=== PATIENT | male | born 1950 | race American Indian/Alaskan Native ===

== ENCOUNTER 2021-11-19 05:44 | Observation (INO) | payer MEDICARE, OTHER ==
[2021-11-14 10:56] LABS: Hematocrit 39.9 % (35.5-45.6); Hemoglobin 13.5 gm/dl (11.8-15.2); Mean Corpuscular HGB Conc 34 % (32-34); Mean Corpuscular Volume 87 fl (84-94); Platelet Count 126 K/mm3 (140-440); Red Blood Count 4.61 M/mm3 (3.65-5.03); Red Cell Distribution Width 15.5 % (13.2-15.2)
[2021-11-14 11:23] LABS: Calcium 9.6 mg/dL (8.4-10.2)
--- NOTE | 2021-11-14 11:40 | Anesthesia Consultation ---
Anesthesia Consult and Med Hx Date of service: 11/19/21 - Airway Anesthetic Teeth Evaluation: Crowns, Partials ROM Head & Neck: Adequate Mental/Hyoid Distance: Adequate Mallampati Class: Class II Intubation Access Assessment: Probably Good - Pre-Operative Health Status ASA Pre-Surgery Classification: ASA4 Proposed Anesthetic Plan: General - Pulmonary Hx Smoking: Yes (Quit 1994) SOB: No (SALAZAR 50 feet) Hx Pneumonia: Yes (2000, 2002 s/p CABG) Hx Sleep Apnea: Yes (+ CPAP) - Cardiovascular System Hx Hypertension: Yes (Diastolic CHF) Hx Coronary Artery Disease: Yes (CABG x 3) Hx Heart Attack/AMI: Yes - Central Nervous System Hx Neuromuscular Disorder: Yes (peripheral neuropathy, GOUT) CVA: No Hx Psychiatric Problems: No - Gastrointestinal Hx Gastroesophageal Reflux Disease: Yes (S/P gastric bypass 2013) - Endocrine Hx Renal Disease: Yes (S/P kidney transplant) Hx Insulin Dependent Diabetes: Yes - Hematic Hx Anemia: Yes Hx Sickle Cell Disease: No - Other Systems Hx Alcohol Use: No Hx Substance Use: No Hx Cancer: No Hx Obesity: Yes (s/p gastric bypass) - Additional Comments Anesthesia Medical History Comments: Pt is difficult IV access. Last time the IV infiltrated and patient is concerned about it. Significant cardiac history- records reviewed and +cardiac clearance. Was here twice in 2016. Consider restricting IVF perioperatively
[2021-11-19] MEDS ORDERED: SODIUM CHLORIDE 0.9% 1000 ML 1,000 ML IV SCH (06:00)
[2021-11-19] MEDS ORDERED: ceFAZolin/Water 2 GM/20 ML 2 GM/20 ML SYRINGE IV ONE (07:37)
[2021-11-19] MEDS ORDERED: LIDOCAINE MPF (2%) 20 MG/1 ML VIAL 5 ML ONE (07:42)
[2021-11-19] MEDS ORDERED: ONDANSETRON 4 MG/2 ML INJ ONE (07:42)
[2021-11-19] MEDS ORDERED: fentaNYL 100 MCG/2 ML INJ ONE (07:42)
[2021-11-19] MEDS ORDERED: propofoL 200 MG/20 ML VIAL IV ONE (07:43)
[2021-11-19] MEDS ORDERED: SODIUM CHLORIDE 0.9% 1000 ML 1,000 ML ONE (07:43)
[2021-11-19] MEDS ORDERED: DEXTROSE 50% IN WATER (25GM) 50 ML SYRINGE IV PRN (09:22)
[2021-11-19] MEDS ORDERED: MORPHINE 4 MG/1 ML INJ IV PRN (09:22)
[2021-11-19] MEDS ORDERED: HYDROcodone/ACETAMINOPHEN 5-325 MG TAB PO PRN (09:22)
[2021-11-19] MEDS ORDERED: NALOXONE 0.4 MG/1 ML INJ IV PRN (09:22)
[2021-11-19] MEDS ORDERED: ONDANSETRON 4 MG/2 ML INJ IV PRN (09:22)
[2021-11-19] MEDS ORDERED: ACETAMINOPHEN 325 MG TAB PO PRN (09:22)
--- NOTE | 2021-11-19 09:22 | Short Stay Summary ---
Short Stay Documentation Date of service: 11/19/21 - History H&P: obtained from office - Allergies and Medications Current Medications: Allergies No Known Allergies Allergy (Verified 11/06/21 16:28) Home Medications Medication Instructions Recorded Confirmed Last Taken Type Aspirin [Aspirin TAB] 81 mg PO DAILY 04/26/15 11/06/21 07/11/15 History Cholecalciferol (Vitamin D3) 2,000 unit PO QDAY 04/26/15 11/06/21 07/21/15 10:00 History [Vitamin D3] carvediloL [Coreg] 25 mg PO BID 04/30/15 11/12/21 07/11/15 History Albuterol Sulfate [Proair 90 mcg IH PRN PRN 11/06/21 11/06/21 Unknown History Respiclick] Atorvastatin [Lipitor Tab] 80 mg PO QHS 11/06/21 11/06/21 Unknown History Esomeprazole Magnesium [NexIUM] 40 mg PO QDAY 11/06/21 11/06/21 Unknown History Ezetimibe [Zetia] 10 mg PO QDAY 11/06/21 11/06/21 Unknown History Furosemide [Lasix TAB] 80 mg PO QDAY 11/06/21 11/06/21 Unknown History Gabapentin [Neurontin] 100 mg PO BID 11/06/21 11/06/21 Unknown History Insulin Glargine [Lantus VIAL] 10 units SUB-Q BID 11/06/21 11/06/21 Unknown History Insulin Lispro [Humalog 100 14 units SQ QDAY 11/06/21 11/06/21 Unknown History UNITS/ML Kwikpen] Multivitamin Tab [Multiple Vitamin 1 each PO QDAY 11/06/21 11/06/21 Unknown History TAB (Theragran)] hydrALAZINE [Apresoline TAB] 100 mg PO BID 11/06/21 11/06/21 Unknown History Mycophenolate Mofetil [Cellcept] 250 mg PO BID 11/12/21 11/12/21 Unknown History Tacrolimus [Prograf] 2 mg PO QAM 11/12/21 11/12/21 Unknown History Tacrolimus [Prograf] 3 mg PO QHS 11/12/21 11/12/21 Unknown History predniSONE [Deltasone] 5 mg PO QDAY 11/12/21 11/12/21 Unknown History Active Medications Sodium Chloride (Nacl 0.9% 1000 Ml) 1,000 mls @ 42 mls/hr IV DIRECT ELIECER - Brief post op/procedure progress note Date of procedure: 11/19/21 Pre-op diagnosis: BPH Post-op diagnosis: same Procedure: cysto, TURP---GREENLIGHT LASER OF PROSTATE Anesthesia: JEFFREY Surgeon: JHONATAN TAYLOR Estimated blood loss: minimal Pathology: list (PROSTATE CHIPS) Specimen disposition: to lab Condition: stable - Hospital course Hospital course: BACTRIM & SOLANGE ON CHART - Disposition Condition at discharge: Stable Disposition: 01 HOME / SELF CARE / HOMELESS Short Stay Discharge Plan Follow up with: IVETT PIERCE MD [Primary Care Provider] - 7 Days
[2021-11-19] MEDS ORDERED: NON-FORMULARY EACH (Albuterol Sulfate [Proair Respiclick] 90 MCG Aer.Pow.Ba) IH PRN (09:30)
[2021-11-19] MEDS ORDERED: SODIUM CHLORIDE IRRI 1000 ML 1,000 ML IR ONE (09:31)
[2021-11-19] MEDS ORDERED: carvediloL 3.125 MG TAB PO SCH (10:00)
[2021-11-19] MEDS ORDERED: NON-FORMULARY EACH (Esomeprazole Magnesium [Nexium] 40 MG Capsule.Dr) PO SCH (10:00)
[2021-11-19] MEDS ORDERED: NON-FORMULARY EACH (Furosemide [Lasix Tab] 80 MG Tablet) PO SCH (10:00)
[2021-11-19] MEDS ORDERED: MYCOPHENOLATE 250 MG CAP PO SCH (10:00)
[2021-11-19] MEDS ORDERED: NON-FORMULARY EACH (Insulin Lispro [Humalog 100 Units/Ml Kwikpen] 100 UNIT/ML Insuln.Pen) SQ SCH (10:00)
[2021-11-19] MEDS ORDERED: ALBUTEROL 2.5 MG/3 ML NEBU IH PRN (11:13)
[2021-11-19] MEDS ORDERED: SODIUM CHLORIDE 0.9% IRR 500 ML BOTTLE IR PRN (11:28)
--- NOTE | 2021-11-19 11:33 | Operative Report ---
DATE OF SURGERY: 11/19/2021 PREOPERATIVE DIAGNOSIS: Benign prostatic hyperplasia. POSTOPERATIVE DIAGNOSIS Benign prostatic hyperplasia. PROCEDURES: Cystoscopy, transurethral resection of prostate, GreenLight laser of the prostate. SURGEON: Edy Lovett MD ANESTHESIA: General. ESTIMATED BLOOD LOSS: Minimal. FLUIDS: Crystalloid. COMPLICATIONS: No complications. INDICATIONS: This patient is a 71-year-old gentleman, history of diabetes, renal insufficiency, status post kidney transplant with persistent BPH symptoms despite medication. Also, of note, he is on Lasix. Discussed options. The patient agreed to proceed with surgical intervention. Risks, benefits, complications were explained. The patient was also cleared by his transplant team as well as his decorating instructor, Dr. Boyce. DESCRIPTION OF PROCEDURE: The patient was taken to the operative suite, placed in a supine position. After adequate general anesthesia, placed in the dorsal lithotomy position, prepped and draped in a sterile fashion. Pancystourethroscopy was performed with a 22-Bruneian Storz cystoscope, no urethral abnormalities. Also, of note, the patient has an inflatable penile prosthesis. His prostate displays moderate trilobar obstruction. Bladder, no tumors or stones were noted. Next, using a 24-Bruneian resectoscope and loop with cutting and coag on 160 and 60, transurethral resection of the prostate was performed, taken down the median lobes. Also, with the aid of a GreenLight laser at 80 colbert, laser ablation of the lateral lobes and median lobe was performed. The patient tolerated the procedure well. A 22-Bruneian 3-way catheter was placed. Rectal exam was benign. He was extubated and taken to Recovery Room with a Anglin's drip. He will be observed overnight. He will go home on Bactrim and [place]. TID: [id number] RECEIPT: [id number] LEE/KIKI/DEMETRICE
[2021-11-19] MEDS: MULTIVITAMINS ,THERAPEUTIC TAB PO SCH (11:46)
[2021-11-19] MEDS: EZETIMIBE 10 MG TAB PO SCH (11:46)
[2021-11-19] MEDS: predniSONE 5 MG TAB PO SCH (11:47)
[2021-11-19] MEDS: hydrALAZINE 100 MG TAB PO SCH ×2 (11:47→21:16)
[2021-11-19] MEDS: GABAPENTIN 100 MG CAP PO SCH ×2 (11:47→21:16)
[2021-11-19] MEDS: PANTOPRAZOLE 40 MG TAB PO SCH (11:47)
[2021-11-19] MEDS: INSULIN LISPRO 100 UNIT/ML SUB-Q SCH (12:30)
[2021-11-19] MEDS: MYCOPHENOLATE 500 MG TAB PO SCH ×2 (12:30→21:16)
[2021-11-19] MEDS: TACROLIMUS 1 MG CAP PO SCH (12:30)
--- NOTE | 2021-11-19 12:54 | Consultation ---
History of Present Illness - Reason for Consult Consult date: 11/19/21 med management Requesting physician: JHONATAN TAYLOR - History of Present Illness 71-year-old male with past medical history of BPH who presented for a procedure to [facility] for cystoscopy and TURP. Patient underwent procedure this morning by urology. Urology has placed a consult for general medical management. Patient denies any chest pain or shortness of breath. No headache or visual disturba nces Past History Past Medical History: CAD, hyperlipidemia, other (BPH) Past Surgical History: Other (Recent TURP and cystoscopy, kidney transplant, CABG) Social history: no significant social history Family history: no significant family history Medications and Allergies Allergies Allergy/AdvReac Type Severity Reaction Status Date / Time No Known Allergies Allergy Verified 11/06/21 16:28 Home Medications Medication Instructions Recorded Confirmed Last Taken Type Aspirin [Aspirin TAB] 81 mg PO DAILY 04/26/15 11/06/21 07/11/15 History Cholecalciferol (Vitamin D3) 2,000 unit PO QDAY 04/26/15 11/06/21 07/21/15 10:00 History [Vitamin D3] carvediloL [Coreg] 25 mg PO BID 04/30/15 11/12/21 07/11/15 History Albuterol Sulfate [Proair 90 mcg IH PRN PRN 11/06/21 11/06/21 Unknown History Respiclick] Atorvastatin [Lipitor Tab] 80 mg PO QHS 11/06/21 11/06/21 Unknown History Esomeprazole Magnesium [NexIUM] 40 mg PO QDAY 11/06/21 11/06/21 Unknown History Ezetimibe [Zetia] 10 mg PO QDAY 11/06/21 11/06/21 Unknown History Furosemide [Lasix TAB] 80 mg PO QDAY 11/06/21 11/06/21 Unknown History Gabapentin [Neurontin] 100 mg PO BID 11/06/21 11/06/21 Unknown History Insulin Glargine [Lantus VIAL] 10 units SUB-Q BID 11/06/21 11/06/21 Unknown History Insulin Lispro [Humalog 100 14 units SQ QDAY 11/06/21 11/06/21 Unknown History UNITS/ML Kwikpen] Multivitamin Tab [Multiple Vitamin 1 each PO QDAY 11/06/21 11/06/21 Unknown History TAB (Theragran)] hydrALAZINE [Apresoline TAB] 100 mg PO BID 11/06/21 11/06/21 Unknown History Mycophenolate Mofetil [Cellcept] 500 mg PO BID 11/12/21 11/19/21 Unknown History Tacrolimus [Prograf] 2 mg PO QAM 11/12/21 11/12/21 Unknown History Tacrolimus [Prograf] 3 mg PO QHS 11/12/21 11/12/21 Unknown History predniSONE [Deltasone] 5 mg PO QDAY 11/12/21 11/12/21 Unknown History Active Meds: Active Medications Acetaminophen (Acetaminophen 325 Mg Tab) 650 mg PO Q4H PRN PRN Reason: Pain, Mild (1-3)/Fever > 100.5 Hydrocodone Bitart/Acetaminophen (Hydrocodone/Acetaminophen 5-325 Mg Tab) 2 each PO Q4H PRN PRN Reason: Pain, Moderate (4-6) Albuterol (Albuterol 2.5 Mg/3 Ml Nebu) 2.5 mg IH Q4HRT PRN PRN Reason: Shortness Of Breath Atorvastatin Calcium (Atorvastatin 40 Mg Tab) 80 mg PO QHS [facility] Carvedilol (Carvedilol 25 Mg Tab) 25 mg PO Q12HR [facility] Dextrose (Dextrose 50% In Water (25gm) 50 Ml Syringe) 50 ml IV Q30MIN PRN; Protocol PRN Reason: Hypoglycemia Ezetimibe (Ezetimibe 10 Mg Tab) 10 mg PO QDAY [facility] Last Admin: 11/19/21 11:46 Dose: 10 mg Furosemide (Furosemide 40 Mg Tab) 80 mg PO DAILY [facility] Gabapentin (Gabapentin 100 Mg Cap) 100 mg PO BID ELIECER Last Admin: 11/19/21 11:47 Dose: 100 mg Hydralazine HCl (Hydralazine 100 Mg Tab) 100 mg PO BID [facility] Last Admin: 11/19/21 11:47 Dose: 100 mg Sodium Chloride (Nacl 0.9% 1000 Ml) 1,000 mls @ 42 mls/hr IV DIRECT ELIECER Cefazolin Sodium (Ancef/Ns 1 Gm/50 Ml) 1 gm in 50 mls @ 100 mls/hr IV Q8H [facility]; Protocol Stop: 11/20/21 00:29 Insulin Glargine (Insulin Glargine 100 Units/Ml) 10 units SUB-Q BID [facility] Insulin Human Lispro (Insulin Lispro 100 Unit/Ml) 14 unit SUB-Q DAILY@1200 [facility] Last Admin: 11/19/21 12:30 Dose: 14 unit Insulin Human Lispro (Insulin Lispro 100 Unit/Ml) 12 unit SUB-Q DAILY@1730 [facility] Morphine Sulfate (Morphine 4 Mg/1 Ml Inj) 4 mg IV Q4H PRN PRN Reason: Pain , Severe (7-10) Multivitamins (Multivitamins ,Therapeutic Tab) 1 each PO QDAY [facility] Last Admin: 11/19/21 11:46 Dose: 1 each Mycophenolate Mofetil (Mycophenolate 500 Mg Tab) 500 mg PO BID [facility] Last Admin: 11/19/21 12:30 Dose: 500 mg Naloxone HCl (Naloxone 0.4 Mg/1 Ml Inj) 0.1 mg IV Q2MIN PRN PRN Reason: Res Rate </= 8 or 02 SAT < 92% Ondansetron HCl (Ondansetron 4 Mg/2 Ml Inj) 4 mg IV Q8H PRN PRN Reason: Nausea And Vomiting Pantoprazole Sodium (Pantoprazole 40 Mg Tab) 40 mg PO DAILY [facility] Last Admin: 11/19/21 11:47 Dose: 40 mg Prednisone (Prednisone 5 Mg Tab) 5 mg PO QDAY [facility] Last Admin: 11/19/21 11:47 Dose: 5 mg Sodium Chloride (Sodium Chloride 0.9% Irr 500 Ml Bottle) 500 ml IR DIRECT PRN PRN Reason: Wound Care Tacrolimus (Tacrolimus 1 Mg Cap) 2 mg PO QAM [facility] Last Admin: 11/19/21 12:30 Dose: 2 mg Tacrolimus (Tacrolimus 1 Mg Cap) 3 mg PO QHS [facility] Zolpidem Tartrate (Zolpidem 5 Mg Tab) 5 mg PO QHS PRN PRN Reason: Sleep Review of Systems All systems: negative Exam - Constitutional Vitals: Temp Pulse Resp BP Pulse Ox 97.2 F L 66 19 168/78 98 11/19/21 09:24 11/19/21 11:15 11/19/21 11:15 11/19/21 11:15 11/19/21 11:15 General appearance: Present: no acute distress, well-nourished - EENT Eyes: Present: PERRL ENT: hearing intact, clear oral mucosa - Neck Neck: Present: supple, normal ROM - Respiratory Respiratory effort: normal Respiratory: bilateral: CTA - Cardiovascular Heart Sounds: Present: S1 & S2. Absent: rub, click - Extremities Extremities: pulses symmetrical, No edema Peripheral Pulses: within normal limits - Abdominal General gastrointestinal: Present: soft, non-tender, non-distended, normal bowel sounds Male genitourinary: Present: normal - Integumentary Integumentary: Present: clear, warm, dry - Musculoskeletal Musculoskeletal: gait normal, strength equal bilaterally - Psychiatric Psychiatric: appropriate mood/affect, intact judgment & insight - Neurologic Neurologic: CNII-XII intact, moves all extremities Results - Labs CBC & Chem 7: 11/14/21 10:35 11/14/21 10:35 Labs: Abnormal lab results 11/19/21 11/19/21 Range/Units 06:37 09:28 POC Glucose 157 H 160 H (70-105) mg/dL Assessment and Plan BPH. Patient status post cystoscopy and TURP. Hyperlipidemia. Resume antilipid CAD. History of CABG. Continue Coreg History of renal transplant. Continue medications/immunosuppressants
--- NOTE | 2021-11-19 13:12 | Post Anesthesia Evaluation ---
- Post Anesthesia Evaluation Patient Participated: Yes Airway Patent: Yes Stable Respiratory Function: Yes Nausea/Vomiting: No Temp > 96.8F: Yes Pain Manageable: Yes Adequeate Hydration: Yes Anesthesia Complications: No
[2021-11-19] MEDS: ceFAZolin/NS 1 GM/50 ML 1 GM/50 ML BAG IV SCH (17:18)
[2021-11-19] MEDS ORDERED: INSULIN LISPRO 100 UNIT/ML SUB-Q SCH (17:30)
[2021-11-19] MEDS ORDERED: ZOLPIDEM 5 MG TAB PO PRN (21:00)
[2021-11-19] MEDS: carvediloL 25 MG TAB PO SCH (21:16)
[2021-11-19] MEDS: INSULIN GLARGINE 100 UNITS/ML SUB-Q SCH (21:16)
[2021-11-19] MEDS ORDERED: NON-FORMULARY EACH (Atorvastatin [Lipitor] 80 MG Tablet) PO SCH (22:00)
[2021-11-19] MEDS ORDERED: TACROLIMUS 1 MG CAP PO SCH (22:00)
[2021-11-20] MEDS: ceFAZolin/NS 1 GM/50 ML 1 GM/50 ML BAG IV SCH (01:06)
[2021-11-20 05:51] LABS: Basophils % (Auto) 0.5 % (0.0-1.8); Eosinophils % (Auto) 0.7 % (0.0-4.3); Hematocrit 37.6 % (35.5-45.6); Hemoglobin 12.4 gm/dl (11.8-15.2); Lymphocytes # (Auto) 1.1 K/mm3 (1.2-5.4); Lymphocytes % (Auto) 17.9 % (13.4-35.0); Mean Corpuscular HGB Conc 33 % (32-34); Mean Corpuscular Volume 88 fl (84-94); Monocytes # (Auto) 0.6 K/mm3 (0.0-0.8); Monocytes % (Auto) 10.2 % (0.0-7.3); Platelet Count 116 K/mm3 (140-440); Red Blood Count 4.29 M/mm3 (3.65-5.03); Red Cell Distribution Width 15.3 % (13.2-15.2)
[2021-11-20 06:10] LABS: Calcium 8.6 mg/dL (8.4-10.2)
[2021-11-20] MEDS: carvediloL 25 MG TAB PO SCH (09:08)
[2021-11-20] MEDS: EZETIMIBE 10 MG TAB PO SCH (09:08)
[2021-11-20] MEDS: predniSONE 5 MG TAB PO SCH (09:08)
[2021-11-20] MEDS: PANTOPRAZOLE 40 MG TAB PO SCH (09:08)
[2021-11-20] MEDS: MYCOPHENOLATE 500 MG TAB PO SCH (09:08)
[2021-11-20] MEDS: MULTIVITAMINS ,THERAPEUTIC TAB PO SCH (09:08)
[2021-11-20] MEDS: GABAPENTIN 100 MG CAP PO SCH (09:08)
[2021-11-20] MEDS: TACROLIMUS 1 MG CAP PO SCH (09:08)
[2021-11-20] MEDS: INSULIN GLARGINE 100 UNITS/ML SUB-Q SCH (09:09)
[2021-11-20] MEDS: hydrALAZINE 100 MG TAB PO SCH (09:09)
[2021-11-20] MEDS ORDERED: FUROSEMIDE 40 MG TAB PO SCH (10:00)
--- NOTE | 2021-11-20 10:18 | Progress Note ---
Assessment and Plan Assessment and plan: BPH. Patient status post cystoscopy and TURP. Hyperlipidemia. Resume antilipid CAD. History of CABG. Continue Coreg History of renal transplant. Continue medications/immunosuppressants History Interval history: No new issues overnight Hospitalist Physical - Constitutional Vitals: Temp Pulse Resp BP Pulse Ox 98.2 F 84 18 138/51 97 11/19/21 21:03 11/20/21 00:17 11/20/21 00:17 11/19/21 21:03 11/20/21 00:17 General appearance: Present: no acute distress, well-nourished - EENT Eyes: Present: PERRL, EOM intact ENT: hearing intact, clear oral mucosa, dentition normal - Neck Neck: Present: supple, normal ROM - Respiratory Respiratory effort: normal Respiratory: bilateral: CTA - Cardiovascular Rhythm: regular Heart Sounds: Present: S1 & S2. Absent: gallop, rub - Extremities Extremities: no ischemia, No edema, Full ROM - Abdominal General gastrointestinal: soft, non-tender, non-distended, normal bowel sounds - Integumentary Integumentary: Present: clear, warm, dry - Neurologic Neurologic: CNII-XII intact, moves all extremities Results - Labs CBC & Chem 7: 11/20/21 04:00 11/20/21 04:00 Labs: Laboratory Last Values WBC 6.1 K/mm3 (4.5-11.0) 11/20/21 04:00 RBC 4.29 M/mm3 (3.65-5.03) 11/20/21 04:00 Hgb 12.4 gm/dl (11.8-15.2) 11/20/21 04:00 Hct 37.6 % (35.5-45.6) 11/20/21 04:00 MCV 88 fl (84-94) 11/20/21 04:00 MCH 29 pg (28-32) 11/20/21 04:00 MCHC 33 % (32-34) 11/20/21 04:00 RDW 15.3 % (13.2-15.2) H 11/20/21 04:00 Plt Count 116 K/mm3 (140-440) L 11/20/21 04:00 Lymph % (Auto) 17.9 % (13.4-35.0) 11/20/21 04:00 [place] % (Auto) 10.2 % (0.0-7.3) H 11/20/21 04:00 Eos % (Auto) 0.7 % (0.0-4.3) 11/20/21 04:00 Baso % (Auto) 0.5 % (0.0-1.8) 11/20/21 04:00 Lymph # (Auto) 1.1 K/mm3 (1.2-5.4) L 11/20/21 04:00 [place] # (Auto) 0.6 K/mm3 (0.0-0.8) 11/20/21 04:00 Eos # (Auto) 0.0 K/mm3 (0.0-0.4) 11/20/21 04:00 Baso # (Auto) 0.0 K/mm3 (0.0-0.1) 11/20/21 04:00 Seg Neutrophils % 70.7 % (40.0-70.0) H 11/20/21 04:00 Seg Neutrophils # 4.3 K/mm3 (1.8-7.7) 11/20/21 04:00 Sodium 138 mmol/L (137-145) 11/20/21 04:00 Potassium 5.5 mmol/L (3.6-5.0) H 11/20/21 04:00 Chloride 105.7 mmol/L (98-107) 11/20/21 04:00 Carbon Dioxide 23 mmol/L (22-30) 11/20/21 04:00 Anion Gap 15 mmol/L 11/20/21 04:00 BUN 41 mg/dL (9-20) H 11/20/21 04:00 Creatinine 1.8 mg/dL (0.8-1.3) H 11/20/21 04:00 Estimated GFR 45 ml/min 11/20/21 04:00 BUN/Creatinine Ratio 23 % 11/20/21 04:00 Glucose 196 mg/dL (75-100) H 11/20/21 04:00 POC Glucose 160 mg/dL (70-105) H 11/19/21 09:28 Calcium 8.6 mg/dL (8.4-10.2) 11/20/21 04:00 Total Bilirubin 0.90 mg/dL (0.1-1.2) 11/14/21 10:35 AST 41 units/L (5-40) H 11/14/21 10:35 ALT 72 units/L (7-56) H 11/14/21 10:35 Alkaline Phosphatase 81 units/L (35-129) 11/14/21 10:35 Total Protein 6.7 g/dL (6.3-8.2) 11/14/21 10:35 Albumin 4.0 g/dL (3.9-5) 11/14/21 10:35 Albumin/Globulin Ratio 1.5 % 11/14/21 10:35 SARS-CoV-2 (PCR) Negative (Negative) 11/14/21 10:30 Blood Type A POSITIVE 11/19/21 06:35 Antibody Screen Negative 11/19/21 06:35 [place]/IV: Voiding Method Indwelling Catheter Active Medications - Current Medications Current Medications: Generic Name Dose Route Start Last Admin Trade Name Freq PRN Reason Stop Dose Admin Acetaminophen 650 mg 11/19/21 09:22 Acetaminophen 325 Mg Tab PO Q4H PRN Pain, Mild (1-3)/Fever > 100.5 Hydrocodone Bitart/Acetaminophen 2 each 11/19/21 09:22 11/19/21 13:14 Hydrocodone/Acetaminophen 5-325 Mg Tab PO 2 each Q4H PRN Administration Pain, Moderate (4-6) Albuterol 2.5 mg 11/19/21 11:13 Albuterol 2.5 Mg/3 Ml Nebu IH Q4HRT PRN Shortness Of Breath Atorvastatin Calcium 80 mg 11/19/21 22:00 11/19/21 21:16 Atorvastatin 40 Mg Tab PO 80 mg QHS ELIECER Administration Carvedilol 25 mg 11/19/21 22:00 11/20/21 09:08 Carvedilol 25 Mg Tab PO 25 mg Q12HR EL[facility]ECER Administration Dextrose 50 ml 11/19/21 09:22 Dextrose 50% In Water (25gm) 50 Ml Syringe IV Q30MIN PRN Hypoglycemia Protocol Ezetimibe 10 mg 11/19/21 10:00 11/20/21 09:08 Ezetimibe 10 Mg Tab PO 10 mg QDAY ELI[facility]ER Administration Furosemide 80 mg 11/20/21 10:00 11/20/21 09:08 Furosemide 40 Mg Tab PO 80 mg DAILY ELIECER Administration Gabapentin 100 mg 11/19/21 10:00 11/20/21 09:08 Gabapentin 100 Mg Cap PO 100 mg BID EL[facility]ECER Administration Hydralazine HCl 100 mg 11/19/21 10:00 11/20/21 09:09 Hydralazine 100 Mg Tab PO 100 mg BID ELIECER Administration Sodium Chloride 1,000 mls @ 42 mls/hr 11/19/21 06:00 11/19/21 14:28 Nacl 0.9% 1000 Ml IV 42 mls/hr DIRECT ELIECER Administration Insulin Glargine 10 units 11/19/21 22:00 11/20/21 09:09 Insulin Glargine 100 Units/Ml SUB-Q 10 units BID EL[facility]ECER Administration Insulin Human Lispro 14 unit 11/19/21 12:00 11/19/21 12:30 Insulin Lispro 100 Unit/Ml SUB-Q 14 unit DAILY@1200 [facility] Administration Insulin Human Lispro 12 unit 11/19/21 17:30 11/19/21 17:19 Insulin Lispro 100 Unit/Ml SUB-Q 12 unit DAILY@1730 [facility] Administration Morphine Sulfate 4 mg 11/19/21 09:22 Morphine 4 Mg/1 Ml Inj IV Q4H PRN Pain , Severe (7-10) Multivitamins 1 each 11/19/21 10:00 11/20/21 09:08 Multivitamins ,Therapeutic Tab PO 1 each QDAY [facility] Administration Mycophenolate Mofetil 500 mg 11/19/21 11:00 11/20/21 09:08 Mycophenolate 500 Mg Tab PO 500 mg BID EL[facility]ECER Administration Naloxone HCl 0.1 mg 11/19/21 09:22 Naloxone 0.4 Mg/1 Ml Inj IV Q2MIN PRN Res Rate </= 8 or 02 SAT < 92% Ondansetron HCl 4 mg 11/19/21 09:22 Ondansetron 4 Mg/2 Ml Inj IV Q8H PRN Nausea And Vomiting Pantoprazole Sodium 40 mg 11/19/21 12:00 11/20/21 09:08 Pantoprazole 40 Mg Tab PO 40 mg DAILY EL[facility] Administration Prednisone 5 mg 11/19/21 10:00 11/20/21 09:08 Prednisone 5 Mg Tab PO 5 mg QDAY [facility]EC[facility] Administration Sodium Chloride 500 ml 11/19/21 11:28 Sodium Chloride 0.9% Irr 500 Ml Bottle IR DIRECT PRN Wound Care Tacrolimus 2 mg 11/19/21 11:00 11/20/21 09:08 Tacrolimus 1 Mg Cap PO 2 mg QAM ELIECER Administration Tacrolimus 3 mg 11/19/21 22:00 11/19/21 21:16 Tacrolimus 1 Mg Cap PO 3 mg QHS ELIECER Administration Zolpidem Tartrate 5 mg 11/19/21 21:00 Zolpidem 5 Mg Tab PO QHS PRN Sleep
--- NOTE | 2021-11-20 11:34 | Discharge Summary ---
Short Stay Discharge Plan Activity: other (no straining ) Weight Bearing Status: Partial Weight Bearing Diet: low fat, low cholesterol, low salt Special Instructions: other (inc fluids ) Durable Medical Equipment Needed Upon Discharge: other (bhatia care ) Follow up with: IVETT PIERCE MD [Primary Care Provider] - 7 Days JHONATAN TAYLOR MD [Staff Physician] - 12/02/21
--- NOTE | 2021-11-20 11:35 | Progress Note ---
Assessment and Plan cath irrigated no clots home today Subjective Date of service: 11/20/21 Principal diagnosis: syed Objective - Constitutional Vitals: Vital Signs - 12hr 11/20/21 00:17 Pulse Rate 84 Respiratory 18 Rate O2 Sat by Pulse 97 Oximetry General appearance: Present: obese - Respiratory Respiratory effort: normal Extremities: no ischemia - Gastrointestinal General gastrointestinal: Present: soft, non-tender - Labs CBC & Chem 7: 11/20/21 04:00 11/20/21 04:00 Labs: Abnormal lab results 11/20/21 11/20/21 Range/Units 04:00 04:00 RDW 15.3 H (13.2-15.2) % Plt Count 116 L (140-440) K/mm3 [place] % (Auto) 10.2 H (0.0-7.3) % Lymph # (Auto) 1.1 L (1.2-5.4) K/mm3 Seg Neutrophils % 70.7 H (40.0-70.0) % Potassium 5.5 H (3.6-5.0) mmol/L BUN 41 H (9-20) mg/dL Creatinine 1.8 H (0.8-1.3) mg/dL Glucose 196 H (75-100) mg/dL Medications & Allergies - Medications Allergies/Adverse Reactions: Allergies No Known Allergies Allergy (Verified 11/06/21 16:28) Home Medications: Home Medications Medication Instructions Recorded Confirmed Last Taken Type Aspirin [Aspirin TAB] 81 mg PO DAILY 04/26/15 11/06/21 07/11/15 History Cholecalciferol (Vitamin D3) 2,000 unit PO QDAY 04/26/15 11/06/21 07/21/15 10:00 History [Vitamin D3] carvediloL [Coreg] 25 mg PO BID 04/30/15 11/12/21 07/11/15 History Albuterol Sulfate [Proair 90 mcg IH PRN PRN 11/06/21 11/06/21 Unknown History Respiclick] Atorvastatin [Lipitor Tab] 80 mg PO QHS 11/06/21 11/06/21 Unknown History Esomeprazole Magnesium [NexIUM] 40 mg PO QDAY 11/06/21 11/06/21 Unknown History Ezetimibe [Zetia] 10 mg PO QDAY 11/06/21 11/06/21 Unknown History Furosemide [Lasix TAB] 80 mg PO QDAY 11/06/21 11/06/21 Unknown History Gabapentin [Neurontin] 100 mg PO BID 11/06/21 11/06/21 Unknown History Insulin Glargine [Lantus VIAL] 10 units SUB-Q BID 11/06/21 11/06/21 Unknown History Insulin Lispro [Humalog 100 14 units SQ QDAY 11/06/21 11/06/21 Unknown History UNITS/ML Kwikpen] Multivitamin Tab [Multiple Vitamin 1 each PO QDAY 11/06/21 11/06/21 Unknown History TAB (Theragran)] hydrALAZINE [Apresoline TAB] 100 mg PO BID 11/06/21 11/06/21 Unknown History Mycophenolate Mofetil [Cellcept] 500 mg PO BID 11/12/21 11/19/21 Unknown History Tacrolimus [Prograf] 2 mg PO QAM 11/12/21 11/12/21 Unknown History Tacrolimus [Prograf] 3 mg PO QHS 11/12/21 11/12/21 Unknown History predniSONE [Deltasone] 5 mg PO QDAY 11/12/21 11/12/21 Unknown History Active Medications: Generic Name Dose Route Start Last Admin Trade Name Freq PRN Reason Stop Dose Admin Acetaminophen 650 mg 11/19/21 09:22 Acetaminophen 325 Mg Tab PO Q4H PRN Pain, Mild (1-3)/Fever > 100.5 Hydrocodone Bitart/Acetaminophen 2 each 11/19/21 09:22 11/19/21 13:14 Hydrocodone/Acetaminophen 5-325 Mg Tab PO 2 each Q4H PRN Administration Pain, Moderate (4-6) Albuterol 2.5 mg 11/19/21 11:13 Albuterol 2.5 Mg/3 Ml Nebu IH Q4HRT PRN Shortness Of Breath Atorvastatin Calcium 80 mg 11/19/21 22:00 11/19/21 21:16 Atorvastatin 40 Mg Tab PO 80 mg QHS ELIECER Administration Carvedilol 25 mg 11/19/21 22:00 11/20/21 09:08 Carvedilol 25 Mg Tab PO 25 mg Q12HR ELIECER Administration Dextrose 50 ml 11/19/21 09:22 Dextrose 50% In Water (25gm) 50 Ml Syringe IV Q30MIN PRN Hypoglycemia Protocol Ezetimibe 10 mg 11/19/21 10:00 11/20/21 09:08 Ezetimibe 10 Mg Tab PO 10 mg QDAY ELIECER Administration Furosemide 80 mg 11/20/21 10:00 11/20/21 09:08 Furosemide 40 Mg Tab PO 80 mg DAILY ELIECER Administration Gabapentin 100 mg 11/19/21 10:00 11/20/21 09:08 Gabapentin 100 Mg Cap PO 100 mg BID ELIECER Administration Hydralazine HCl 100 mg 11/19/21 10:00 11/20/21 09:09 Hydralazine 100 Mg Tab PO 100 mg BID ELIECER Administration Sodium Chloride 1,000 mls @ 42 mls/hr 11/19/21 06:00 11/19/21 14:28 Nacl 0.9% 1000 Ml IV 42 mls/hr DIRECT ELIECER Administration Insulin Glargine 10 units 11/19/21 22:00 11/20/21 09:09 Insulin Glargine 100 Units/Ml SUB-Q 10 units BID ELIECER Administration Insulin Human Lispro 14 unit 11/19/21 12:00 11/19/21 12:30 Insulin Lispro 100 Unit/Ml SUB-Q 14 unit DAILY@1200 ELIECER Administration Insulin Human Lispro 12 unit 11/19/21 17:30 11/19/21 17:19 Insulin Lispro 100 Unit/Ml SUB-Q 12 unit DAILY@1730 ELIECER Administration Morphine Sulfate 4 mg 11/19/21 09:22 Morphine 4 Mg/1 Ml Inj IV Q4H PRN Pain , Severe (7-10) Multivitamins 1 each 11/19/21 10:00 11/20/21 09:08 Multivitamins ,Therapeutic Tab PO 1 each QDAY ELIECER Administration Mycophenolate Mofetil 500 mg 11/19/21 11:00 11/20/21 09:08 Mycophenolate 500 Mg Tab PO 500 mg BID ELIECER Administration Naloxone HCl 0.1 mg 11/19/21 09:22 Naloxone 0.4 Mg/1 Ml Inj IV Q2MIN PRN Res Rate </= 8 or 02 SAT < 92% Ondansetron HCl 4 mg 11/19/21 09:22 Ondansetron 4 Mg/2 Ml Inj IV Q8H PRN Nausea And Vomiting Pantoprazole Sodium 40 mg 11/19/21 12:00 11/20/21 09:08 Pantoprazole 40 Mg Tab PO 40 mg DAILY ELIECER Administration Prednisone 5 mg 11/19/21 10:00 11/20/21 09:08 Prednisone 5 Mg Tab PO 5 mg QDAY ELIECER Administration Sodium Chloride 500 ml 11/19/21 11:28 Sodium Chloride 0.9% Irr 500 Ml Bottle IR DIRECT PRN Wound Care Tacrolimus 2 mg 11/19/21 11:00 11/20/21 09:08 Tacrolimus 1 Mg Cap PO 2 mg QAM ELIECER Administration Tacrolimus 3 mg 11/19/21 22:00 11/19/21 21:16 Tacrolimus 1 Mg Cap PO 3 mg QHS ELIECER Administration Zolpidem Tartrate 5 mg 11/19/21 21:00 Zolpidem 5 Mg Tab PO QHS PRN Sleep
[2021-11-20] MEDS: INSULIN LISPRO 100 UNIT/ML SUB-Q SCH (12:21)
[2021-11-20 12:50] VITALS: BP 142/54
--- NOTE | 2021-11-20 13:26 | Post Anesthesia Evaluation ---
- Post Anesthesia Evaluation Patient Participated: Yes Airway Patent: Yes Stable Respiratory Function: Yes Nausea/Vomiting: No Temp > 96.8F: Yes Pain Manageable: Yes Adequeate Hydration: Yes Anesthesia Complications: No Block Receding Appropriately: Not Applicable Patient on Ventilator: No
== END 2021-11-20 14:38 | disposition home or self-care (01) ==
LOC: OR 05:44 → 3A 09:22
PROVIDERS: ADMIT Urology; ATTEND Urology
DX: N40.1 Benign prostatic hyperplasia with lower urinary tract symptoms (principal); Z20.822 Contact with and (suspected) exposure to COVID-19; I25.10 Atherosclerotic heart disease of native coronary artery without angina pectoris; E78.5 Hyperlipidemia, unspecified; R33.8 Other retention of urine; R31.9 Hematuria, unspecified; Z79.4 Long term (current) use of insulin; Z79.82 Long term (current) use of aspirin; Z95.1 Presence of aortocoronary bypass graft
CPT/HCPCS: 36415; 52648; 80048; 80053; 82962; 85025; 85027; 86850; 86900; 86901; 88305; 94660; 96365; 96366; G0378; G0379; J0690; J2704; J3010; J7030; J7507; J7512; U0003; J3490; Q9967; J1815; J2405; J7517